=== PATIENT | female | born 1970 | race Caucasian/White ===

== ENCOUNTER → 2025-04-17 06:58 | Outpatient (REF) | payer BC, SELFPAY | LOC: HWRAD 06:58 | PROVIDERS: ATTENDING PHYSICIAN Internal Medicine | DX: R93.429 Abnormal radiologic findings on diagnostic imaging of unspecified kidney (principal) | CPT/HCPCS: 76775 ==

== ENCOUNTER → 2025-05-30 07:58 | Outpatient (REF) | payer BC, SELFPAY | LOC: RAD 07:58 | PROVIDERS: ATTENDING PHYSICIAN Internal Medicine | DX: R60.0 Localized edema (principal); R29.898 Other symptoms and signs involving the musculoskeletal system | CPT/HCPCS: 93970 ==